=== PATIENT | male | born 1965 | race Two or more races ===

== ENCOUNTER 2017-07-17 11:15 | Inpatient (IN) | payer OTHER ==
[2017-07-17 13:05] VITALS: BMI 32.1
--- NOTE | 2017-07-17 13:47 | HP ---
CIWA Score - CIWA Score Nausea/Vomitin Muscle Tremors: 3 Anxiety: 3 Agitation: 3 Paroxysmal Sweats: 2 Orientation: 0-Oriented Tacttile Disturbances: 2-Mild Itch/Numbness/Burn Auditory Disturbances: 2-Mild Harshness/Frighten Visual Disturbances: 0-None Headache: 2-Mild CIWA-Ar Total Score: 20 Admission ROS BHS - HPI Chief Complaint: I NEED HELP TO STOP USING DRUG XANAX,HEROIN,MMTP Allergies/Adverse Reactions: Allergies Allergy/AdvReac Type Severity Reaction Status Date / Time Penicillins Allergy Severe Rash Verified 07/17/17 13:50 History of Present Illness: THIS 52 YEARS OLD MALE WITH XANAX AND HEROIN DEPENDENCE,MMTP,SEEKING DETOX,LAST DETOX [facility] 06/20 LOW BACK PAIN HERNIATED DISC HISTORY OF DVT BOTH LEGS NICOTINE DEPENDENCE LAP CHOLECYSTECMY IN 2014 LONGEST PERIOD OD SOBRIETY 8 YEARS - Ebola screening Have you traveled outside of the country in the last 21 days: No Have you had contact with anyone from an Ebola affected area: No Have you been sick,other than usual withdrawal symptoms: No Do you have a fever: No - Review of Systems Constitutional: Chills, Loss of Appetite, Malaise, Night Sweats, Changes in sleep, Weakness EENT: reports: Tearing, Nose Congestion Respiratory: reports: No Symptoms reported Cardiac: reports: No Symptoms Reported GI: reports: Diarrhea, Nausea, Vomiting, Abdominal cramping : reports: No Symptoms Reported Musculoskeletal: reports: Back Pain, Muscle Pain Integumentary: reports: Dryness Neuro: reports: Tremors Endocrine: reports: No Symptoms Reported Hematology: reports: No Symptoms Reported Psychiatric: reports: No Sypmtoms Reported, Judgement Intact, Mood/Affect Appropiate, Orientated x3, Depressed Patient History - Patient Medical History Hx Anemia: No Hx Asthma: No Hx Chronic Obstructive Pulmonary Disease (COPD): Yes (ON ALBUTEROL INHALER) Hx Cancer: No Hx Cardiac Disorders: No Hx Congestive Heart Failure: No Hx Hypertension: No Hx Hypercholesterolemia: No Hx Pacemaker: No HX Cerebrovascular Accident: No Hx Seizures: No Hx Dementia: No Hx Diabetes: No Hx Gastrointestinal Disorders: No Hx Liver Disease: No Hx Genitourinary Disorders: No Hx Sexually Transmitted Disorders: No Hx Human Immunodeficiency Virus (HIV): No (LAST 2016 NEGATIVE) Hx Hepatitis C: No Hx Depression: Yes (INSOMNIA) Hx Suicide Attempt: No Hx Bipolar Disorder: No Hx Schizophrenia: No Other Medical History: NO SUICIDAL,NO HOMICIDAL,LOW BACK PAIN HERNIATED DISC, MMTP 100MGS/DAY - Patient Surgical History Past Surgical History: Yes Hx Cholecystectomy: Yes (LAP IN 2014) - PPD History Previous Implant?: Yes Documented Results: Negative w/o proof Implanted On Prior [facility] Admission?: No PPD to be Administered?: No - Smoking Cessation Smoking history: Current every day smoker Have you smoked in the past 12 months: Yes Aproximately how many cigarettes per day: 15 Cigars Per Day: 0 Hx Chewing Tobacco Use: No Initiated information on smoking cessation: Yes 'Breaking Loose' booklet given: 07/17/17 - Substance & Tx. History Hx Alcohol Use: No Hx Substance Use: Yes Substance Use Type: Heroin, Tranquilizers Hx Substance Use Treatment: Yes ([facility] 06/20) - Substances Abused Alprazolam (Xanax) Route: Oral Frequency: Daily Amount used: 10-12mg Age of first use: 49 Date of Last Use: 07/16/17 Heroin Route: Inhalation Frequency: Daily Amount used: 6-7 bags Age of first use: 22 Date of Last Use: 07/16/17 Family Disease History - Family Disease History Family Disease History: Other: Father (ALCOHOL,), Mother (ALCOHOL, ) Admission Physical Exam [facility] - Vital Signs Vital Signs: Vital Signs - 24 hr 07/17/17 13:02 Temperature 96.0 F L Pulse Rate 63 Respiratory 20 Rate Blood Pressure 96/57 - Physical General Appearance: Yes: Moderate Distress, Tremorous, Irritable, Sweating, Anxious HEENTM: Yes: Normal ENT Inspection, ELAINE, Pharynx Normal Respiratory: Yes: Lungs Clear Neck: Yes: Within Normal Limits Breast: Yes: Within Normal Limits Cardiology: Yes: Within Normal Limits, Regular Rhythm, Regular Rate, S1, S2 Abdominal: Yes: Normal Bowel Sounds, Non Tender, Flat, Soft Genitourinary: Yes: Within Normal Limits Back: Yes: Muscle Spasm Musculoskeletal: Yes: full range of Motion, Back pain Extremities: Yes: Tremors 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 intact, Fully Oriented, Alert, Motor Strength 5/5 Integumentary: Yes: Dry Lymphatic: Yes: Within Normal Limits - Diagnostic (1) Uncomplicated sedative, hypnotic or anxiolytic withdrawal Current Visit: Yes Status: Acute (2) Methadone maintenance therapy patient Current Visit: Yes Status: Acute (3) Depression Current Visit: Yes Status: Acute (4) Heroin dependence Current Visit: Yes Status: Acute (5) S/P laparoscopic cholecystectomy Current Visit: Yes Status: Acute (6) Hx laparoscopic cholecystectomy Current Visit: Yes Status: Acute (7) Nicotine dependence Current Visit: Yes Status: Acute Cleared for Admission S - Detox or Rehab [facility] Level of Care: Medically Managed Detox Regimen/Protocol: Valium [facility] Breath Alcohol Content Breath Alcohol Content: 0 Urine Drug Screen - Results Drug Screen Negative: No Urine Drug Screen Results: OPI-Opiates, BZO-Benzodiazepines, MTD-Methadone
[2017-07-17] MEDS ORDERED: MAGNESIUM HYDROX 2400MG/30ML ORAL SUSPENSION 30 ML CUP PO PRN (14:23)
[2017-07-17] MEDS ORDERED: IBUPROFEN 400 MG TABLET (FP) PO PRN (14:23)
[2017-07-17] MEDS ORDERED: LOPERAMIDE HCL 2 MG CAPSULE PO PRN (14:23)
[2017-07-17] MEDS ORDERED: guaiFENesin/D-METHORPHAN HB 10 ML UNIT-DOSE CUPS PO PRN (14:23)
[2017-07-17] MEDS ORDERED: MAG HYDROX/AL HYDROX/SIMETH 30 ML UNIT-DOSE CUP PO PRN (14:23)
[2017-07-17] MEDS ORDERED: hydrOXYzine PAMOATE 50 MG CAPSULE (FP) PO PRN (14:23)
[2017-07-17] MEDS ORDERED: diazePAM 5 MG TABLET PO PRN (14:23)
[2017-07-17] MEDS ORDERED: MAGNESIUM CITRATE 300 ML BOTTLE PO PRN (14:23)
[2017-07-17] MEDS ORDERED: P-EPHED 60MG/TRIPROLIDI 2.5MG TABLET PO PRN (14:23)
[2017-07-17] MEDS ORDERED: MENTHOL/PHENOL 1 EACH UD MM PRN (14:23)
[2017-07-17] MEDS ORDERED: ALBUTEROL SO4 18 GM HFA INHALER IH PRN (14:31)
[2017-07-17] MEDS ORDERED: diazePAM 5 MG TABLET PO ONE (14:45)
[2017-07-17] MEDS: BACLOFEN 10 MG TABLET (FP) PO SCH (22:41)
[2017-07-17] MEDS: diazePAM 5 MG TABLET PO SCH (22:41)
[2017-07-17] MEDS: THIAMINE HCL 100 MG TABLET (FP) PO SCH (22:41)
[2017-07-17 23:10] LABS: URINE APPEARANCE SLCLOUDY; URINE BILIRUBIN NEGATIVE (NEGATIVE); URINE BLOOD NEGATIVE (NEGATIVE); URINE COLOR AMBER; URINE GLUCOSE (UA) NEGATIVE (NEGATIVE); URINE KETONE NEGATIVE (NEGATIVE); URINE LEUK ESTERASE TRACE (NEGATIVE); URINE NITRITE NEGATIVE (NEGATIVE); URINE UROBILINOGEN 4.0 E.U/dl mg/dL (0.2-1.0)
[2017-07-17 23:15] LABS: URINE PROTEIN 1+ (NEGATIVE)
[2017-07-17 23:23] LABS: EPI CELLS RARE /HPF (FEW); URINE HYALINE CAST 12 /lpf; URINE MUCUS MODERATE
[2017-07-18] MEDS ORDERED: METHADONE HCL 40 MG DISPERSABLE TABLET ONE (04:29)
[2017-07-18] MEDS ORDERED: METHADONE HCL 10 MG TABLET ONE (04:30)
[2017-07-18] MEDS: METHADONE 80 MG, METHADONE 20 MG PO SCH (05:57)
[2017-07-18] MEDS: diazePAM 5 MG TABLET PO SCH ×3 (05:57→22:47)
[2017-07-18] MEDS ORDERED: METHADONE HCL 40 MG DISPERSABLE TABLET PO SCH (06:00)
--- NOTE | 2017-07-18 08:46 | CONSULT ---
[facility] Psychiatric Consult - Data Date of interview: 07/18/17 Admission source: [facility] Identifying data: This is 52 years old male , father of two, homeless , with no psychiatric hospitalization history , looking fro detos to Heroin , Alcohol, Cocaine and Nicotine dependency. Substance Abuse History: - Smoking Cessation. Smoking history: Current every day smoker. Have you smoked in the past 12 months: Yes. Aproximately how many cigarettes per day: 15. Cigars Per Day: 0. Hx Chewing Tobacco Use: No. Initiated information on smoking cessation: Yes. 'Breaking Loose' booklet given : 07/17/17. - Substance & Tx. History. Hx Alcohol Use: No. Hx Substance Use: Yes. Substance Use Type: Heroin, Tranquilizers. Hx Substance Use Treatment: Yes ([facility] 06/20). - Substances Abused. Alprazolam (Xanax). Route: Oral. Frequency: Daily. Amount used: 10-12mg. Age of first use: 49. Date of Last Use: 07/16/17. Heroin. Route: Inhalation. Frequency: Daily. Amount used: 6-7 bags. Age of first use: 22. Date of Last Use: 07/16/17 Medical History: LBP, DVT history, s/p Cholecystectomy on 2014, Psychiatric History: Denies past psychiatric history, reports no medications taking priorm to admission Physical/Sexual Abuse/Trauma History: Denies Additional Comment: Observation. Detox Unit Care Protocol Mental Status Exam - Mental Status Exam Alert and Oriented to: Person Cognitive Function: Fair Patient Appearance: Unkempt Mood: Sad Affect: Flat Patient Behavior: Sedated Speech Pattern: Delayed Voice Loudness: Mildly Soft/Quiet Thought Process: Circumstantial Thought Disorder: Being Controlled Hallucinations: Denies Suicidal Ideation: Denies Homicidal Ideation: Denies Insight/Judgement: Fair Sleep: Difficulty falling asleep Appetite: Weight loss Muscle strength/Tone: Mild Hypotonicity Gait/Station: Shuffling Additional Comments: Observation. Detox Unit Care Protocol Psychiatric Findings - Problem List ([place] 1, 2,3) (1) Drug-induced mood disorder Current Visit: Yes Status: Suspected (2) Depression Current Visit: Yes Status: Acute (3) Methadone maintenance therapy patient Current Visit: Yes Status: Acute (4) Nicotine dependence Current Visit: Yes Status: Acute (5) Uncomplicated sedative, hypnotic or anxiolytic withdrawal Current Visit: Yes Status: Acute - Initial Treatment Plan Initial Treatment Plan: Observation. Detox Unit Care Protocol
[2017-07-18 10:18] LABS: HEMATOCRIT 44.8 % (35.4-49); HEMOGLOBIN 14.7 GM/dL (11.7-16.9); MCH 27.9 pg (25.7-33.7); MCHC 32.9 g/dl (32.0-35.9); MEAN CELL VOLUME 84.9 fl (80-96); PLATELET COUNT 204 K/MM3 (134-434); RBC 5.28 M/mm3 (4.00-5.60); RDW 14.3 % (11.9-15.9); WHITE BLOOD COUNT 6.4 K/mm3 (4.0-10.0)
[2017-07-18 10:25] LABS: CHLORIDE 104 mmol/L (98-107); SODIUM 139 mmol/L (136-145)
[2017-07-18 10:42] LABS: ALBUMIN 4.2 g/dl (3.4-5.0); ALK PHOS 136 U/L (45-117); ANION GAP 7 (8-16); BLOOD UREA NITROGEN 11 mg/dL (7-18); CALCIUM 8.7 mg/dL (8.5-10.1); CO2 28 mmol/L (21-32); CREATININE 1.2 mg/dL (0.7-1.3); GLUCOSE,RANDOM 79 mg/dL (74-106); SGOT/AST 21 U/L (15-37); SGPT/ALT 24 U/L (12-78); TOT PROT 7.8 g/dl (6.4-8.2)
[2017-07-18] MEDS: PRENATAL VITAMINS W/ FOLIC ACID TABLET (FP) PO SCH (10:48)
--- NOTE | 2017-07-18 11:58 | PN ---
S CIWA - CIWA Score Nausea/Vomitin-Mild Nausea/No Vomiting Muscle Tremors: 4-Moderate,w/Arms Extend Anxiety: 4-Mod. Anxious/Guarded Agitation: 4-Moderately Restless Paroxysmal Sweats: 1-Minimal Palms Moist Orientation: 0-Oriented Tacttile Disturbances: 1-Very Mild Itch/Numbness Auditory Disturbances: 0-None Visual Disturbances: 0-None Headache: 1-Very Mild CIWA-Ar Total Score: 16 BHS Progress Note (SOAP) Subjective: sweat tremor anxiety irritable headache GI upset Objective: 07/18/17 11:57 Vital Signs Temperature 97.7 F 07/18/17 10:00 Pulse Rate 68 07/18/17 10:00 Respiratory Rate 20 07/18/17 10:00 Blood Pressure 115/60 07/18/17 10:00 O2 Sat by Pulse Oximetry (%) Laboratory Last Values WBC 6.4 K/mm3 (4.0-10.0) 07/18/17 05:45 RBC 5.28 M/mm3 (4.00-5.60) 07/18/17 05:45 Hgb 14.7 GM/dL (11.7-16.9) 07/18/17 05:45 Hct 44.8 % (35.4-49) 07/18/17 05:45 MCV 84.9 fl (80-96) 07/18/17 05:45 MCH 27.9 pg (25.7-33.7) 07/18/17 05:45 MCHC 32.9 g/dl (32.0-35.9) 07/18/17 05:45 RDW 14.3 % (11.9-15.9) 07/18/17 05:45 Plt Count 204 K/MM3 (134-434) 07/18/17 05:45 MPV 11.0 fl (7.5-11.1) 07/18/17 05:45 Sodium 139 mmol/L (136-145) 07/18/17 05:45 Potassium 4.0 mmol/L (3.5-5.1) 07/18/17 05:45 Chloride 104 mmol/L (98-107) 07/18/17 05:45 Carbon Dioxide 28 mmol/L (21-32) 07/18/17 05:45 Anion Gap 7 (8-16) L 07/18/17 05:45 BUN 11 mg/dL (7-18) 07/18/17 05:45 Creatinine 1.2 mg/dL (0.7-1.3) 07/18/17 05:45 Creat Clearance w eGFR > 60 (>60) 07/18/17 05:45 Random Glucose 79 mg/dL (74-106) 07/18/17 05:45 Calcium 8.7 mg/dL (8.5-10.1) 07/18/17 05:45 Total Bilirubin 1.0 mg/dL (0.2-1.0) 07/18/17 05:45 AST 21 U/L (15-37) 07/18/17 05:45 ALT 24 U/L (12-78) 07/18/17 05:45 Alkaline Phosphatase 136 U/L (45-117) H 07/18/17 05:45 Total Protein 7.8 g/dl (6.4-8.2) 07/18/17 05:45 Albumin 4.2 g/dl (3.4-5.0) 07/18/17 05:45 Urine Color Hiwot 07/17/17 22:10 Urine Appearance Slcloudy 07/17/17 22:10 Urine pH 5.0 (5.0-8.0) 07/17/17 22:10 Ur Specific [place] 1.026 (1.001-1.035) 07/17/17 22:10 Urine Protein 1+ (NEGATIVE) H 07/17/17 22:10 Urine Glucose (UA) Negative (NEGATIVE) 07/17/17 22:10 Urine Ketones Negative (NEGATIVE) 07/17/17 22:10 Urine Blood Negative (NEGATIVE) 07/17/17 22:10 Urine Nitrite Negative (NEGATIVE) 07/17/17 22:10 Urine Bilirubin Negative (NEGATIVE) 07/17/17 22:10 Urine Urobilinogen 4.0 e.u/dl mg/dL (0.2-1.0) 07/17/17 22:10 Ur Leukocyte Esterase Trace (NEGATIVE) 07/17/17 22:10 Urine WBC (Auto) 2 /hpf (3-5) 07/17/17 22:10 Urine RBC (Auto) 2 /hpf (0-3) 07/17/17 22:10 Ur Epithelial Cells Rare /HPF (FEW) 07/17/17 22:10 Hyaline Casts 12 /lpf 07/17/17 22:10 Urine Mucus Moderate 07/17/17 22:10 lab noted Assessment: 07/18/17 11:57 withdrawal sx Plan: withdrawal sx
[2017-07-18] MEDS: BACLOFEN 10 MG TABLET (FP) PO SCH (22:47)
[2017-07-18] MEDS: THIAMINE HCL 100 MG TABLET (FP) PO SCH (22:47)
[2017-07-19] MEDS ORDERED: METHADONE HCL 40 MG DISPERSABLE TABLET ONE (03:18)
[2017-07-19] MEDS ORDERED: METHADONE HCL 10 MG TABLET ONE (03:18)
[2017-07-19] MEDS: METHADONE 80 MG, METHADONE 20 MG PO SCH (05:44)
[2017-07-19] MEDS: PRENATAL VITAMINS W/ FOLIC ACID TABLET (FP) PO SCH (10:30)
[2017-07-19] MEDS: diazePAM 5 MG TABLET PO SCH ×2 (10:30→22:26)
--- NOTE | 2017-07-19 10:45 | PN ---
[facility] CIWA - CIWA Score Nausea/Vomitin-No Nausea/No Vomiting Muscle Tremors: 4-Moderate,w/Arms Extend Anxiety: 3 Agitation: 4-Moderately Restless Paroxysmal Sweats: 4-Forehead w/Sweat Beads Orientation: 0-Oriented Tacttile Disturbances: 0-None Auditory Disturbances: 0-None Visual Disturbances: 0-None Headache: 0-None Present CIWA-Ar Total Score: 15 BHS Progress Note (SOAP) Subjective: anxiety sweats shakes interrupted sleep Objective: 07/19/17 10:45 Vital Signs Temperature 97.9 F 07/19/17 06:00 Pulse Rate 54 L 07/19/17 06:00 Respiratory Rate 18 07/19/17 06:00 Blood Pressure 124/59 07/19/17 06:00 O2 Sat by Pulse Oximetry (%) Laboratory Tests 07/17/17 07/17/17 07/18/17 14:30 22:10 05:45 WBC 6.4 RBC 5.28 Hgb 14.7 Hct 44.8 MCV 84.9 MCH 27.9 MCHC 32.9 RDW 14.3 Plt Count 204 MPV 11.0 Sodium Potassium Chloride Carbon Dioxide Anion Gap BUN Creatinine Creat Clearance w eGFR Random Glucose Calcium Total Bilirubin AST ALT Alkaline Phosphatase Total Protein Albumin Urine Color Hiwot Urine Appearance Slcloudy Urine pH 5.0 Ur Specific [place] 1.026 Urine Protein 1+ H Urine Glucose (UA) Negative Urine Ketones Negative Urine Blood Negative Urine Nitrite Negative Urine Bilirubin Negative Urine Urobilinogen 4.0 e.u/dl Ur Leukocyte Esterase Trace Urine WBC (Auto) 2 Urine RBC (Auto) 2 Ur Epithelial Cells Rare Hyaline Casts 12 Urine Mucus Moderate RPR Titer HIV 1&2 Antibody Screen Negative HIV P24 Antigen Negative 07/18/17 07/18/17 05:45 05:45 WBC RBC Hgb Hct MCV MCH MCHC RDW Plt Count MPV Sodium 139 Potassium 4.0 Chloride 104 Carbon Dioxide 28 Anion Gap 7 L BUN 11 Creatinine 1.2 Creat Clearance w eGFR > 60 Random Glucose 79 Calcium 8.7 Total Bilirubin 1.0 AST 21 ALT 24 Alkaline Phosphatase 136 H Total Protein 7.8 Albumin 4.2 Urine Color Urine Appearance Urine pH Ur Specific [place] Urine Protein Urine Glucose (UA) Urine Ketones Urine Blood Urine Nitrite Urine Bilirubin Urine Urobilinogen Ur Leukocyte Esterase Urine WBC (Auto) Urine RBC (Auto) Ur Epithelial Cells Hyaline Casts Urine Mucus RPR Titer Nonreactive HIV 1&2 Antibody Screen HIV P24 Antigen aaox3 ambulating no acute distress Assessment: 07/19/17 10:45 withdrawal sx Plan: continue detox increase fluids
[2017-07-19] MEDS: THIAMINE HCL 100 MG TABLET (FP) PO SCH (22:26)
[2017-07-19] MEDS: BACLOFEN 10 MG TABLET (FP) PO SCH (22:26)
[2017-07-20] MEDS ORDERED: METHADONE HCL 40 MG DISPERSABLE TABLET ONE (04:29)
[2017-07-20] MEDS ORDERED: METHADONE HCL 10 MG TABLET ONE (04:29)
[2017-07-20] MEDS: METHADONE 80 MG, METHADONE 20 MG PO SCH (06:01)
[2017-07-20] MEDS: PRENATAL VITAMINS W/ FOLIC ACID TABLET (FP) PO SCH (10:18)
[2017-07-20] MEDS: diazePAM 5 MG TABLET PO SCH ×2 (10:18→22:14)
--- NOTE | 2017-07-20 13:33 | PN ---
BHS Progress Note (SOAP) Subjective: ALERT,IRRITABLE,ANXIOUS,INTERRUTED SLEEP Objective: 07/20/17 13:29 Vital Signs Temperature 974.9 F H 07/20/17 09:56 Pulse Rate 65 07/20/17 09:56 Respiratory Rate 18 07/20/17 09:56 Blood Pressure 110/75 07/20/17 09:56 O2 Sat by Pulse Oximetry (%) Assessment: 07/20/17 13:32 WITHDRAWAL SYMPTOM Plan: CONTINUE DETOX
[2017-07-20] MEDS: THIAMINE HCL 100 MG TABLET (FP) PO SCH (22:14)
[2017-07-20] MEDS: BACLOFEN 10 MG TABLET (FP) PO SCH (22:14)
[2017-07-21] MEDS ORDERED: METHADONE HCL 40 MG DISPERSABLE TABLET ONE (04:46)
[2017-07-21] MEDS ORDERED: METHADONE HCL 10 MG TABLET ONE (04:47)
[2017-07-21] MEDS: METHADONE 80 MG, METHADONE 20 MG PO SCH (05:12)
[2017-07-21] MEDS ORDERED: diazePAM 5 MG TABLET PO SCH (10:00)
[2017-07-21] MEDS: PRENATAL VITAMINS W/ FOLIC ACID TABLET (FP) PO SCH (10:16)
--- NOTE | 2017-07-21 10:44 | PN ---
S Progress Note (SOAP) Subjective: alert oriented x 3 mild sweat calm tolerates food and fluid well Objective: 07/21/17 10:44 Vital Signs Temperature 97.4 F L 07/21/17 06:12 Pulse Rate 50 L 07/21/17 06:12 Respiratory Rate 19 07/21/17 06:12 Blood Pressure 113/55 07/21/17 06:12 O2 Sat by Pulse Oximetry (%) Laboratory Last Values WBC 6.4 K/mm3 (4.0-10.0) 07/18/17 05:45 RBC 5.28 M/mm3 (4.00-5.60) 07/18/17 05:45 Hgb 14.7 GM/dL (11.7-16.9) 07/18/17 05:45 Hct 44.8 % (35.4-49) 07/18/17 05:45 MCV 84.9 fl (80-96) 07/18/17 05:45 MCH 27.9 pg (25.7-33.7) 07/18/17 05:45 MCHC 32.9 g/dl (32.0-35.9) 07/18/17 05:45 RDW 14.3 % (11.9-15.9) 07/18/17 05:45 Plt Count 204 K/MM3 (134-434) 07/18/17 05:45 MPV 11.0 fl (7.5-11.1) 07/18/17 05:45 Sodium 139 mmol/L (136-145) 07/18/17 05:45 Potassium 4.0 mmol/L (3.5-5.1) 07/18/17 05:45 Chloride 104 mmol/L (98-107) 07/18/17 05:45 Carbon Dioxide 28 mmol/L (21-32) 07/18/17 05:45 Anion Gap 7 (8-16) L 07/18/17 05:45 BUN 11 mg/dL (7-18) 07/18/17 05:45 Creatinine 1.2 mg/dL (0.7-1.3) 07/18/17 05:45 Creat Clearance w eGFR > 60 (>60) 07/18/17 05:45 Random Glucose 79 mg/dL (74-106) 07/18/17 05:45 Calcium 8.7 mg/dL (8.5-10.1) 07/18/17 05:45 Total Bilirubin 1.0 mg/dL (0.2-1.0) 07/18/17 05:45 AST 21 U/L (15-37) 07/18/17 05:45 ALT 24 U/L (12-78) 07/18/17 05:45 Alkaline Phosphatase 136 U/L (45-117) H 07/18/17 05:45 Total Protein 7.8 g/dl (6.4-8.2) 07/18/17 05:45 Albumin 4.2 g/dl (3.4-5.0) 07/18/17 05:45 Urine Color Hiwot 07/17/17 22:10 Urine Appearance Slcloudy 07/17/17 22:10 Urine pH 5.0 (5.0-8.0) 07/17/17 22:10 Ur Specific [place] 1.026 (1.001-1.035) 07/17/17 22:10 Urine Protein 1+ (NEGATIVE) H 07/17/17 22:10 Urine Glucose (UA) Negative (NEGATIVE) 07/17/17 22:10 Urine Ketones Negative (NEGATIVE) 07/17/17 22:10 Urine Blood Negative (NEGATIVE) 07/17/17 22:10 Urine Nitrite Negative (NEGATIVE) 07/17/17 22:10 Urine Bilirubin Negative (NEGATIVE) 07/17/17 22:10 Urine Urobilinogen 4.0 e.u/dl mg/dL (0.2-1.0) 07/17/17 22:10 Ur Leukocyte Esterase Trace (NEGATIVE) 07/17/17 22:10 Urine WBC (Auto) 2 /hpf (3-5) 07/17/17 22:10 Urine RBC (Auto) 2 /hpf (0-3) 07/17/17 22:10 Ur Epithelial Cells Rare /HPF (FEW) 07/17/17 22:10 Hyaline Casts 12 /lpf 07/17/17 22:10 Urine Mucus Moderate 07/17/17 22:10 RPR Titer Nonreactive (NONREACTIVE) 07/18/17 05:45 HIV 1&2 Antibody Screen Negative 07/17/17 14:30 HIV P24 Antigen Negative 07/17/17 14:30 lab noted Assessment: 07/21/17 10:44 mild withdrawal sx Plan: medically supervised detox
[2017-07-21] MEDS: THIAMINE HCL 100 MG TABLET (FP) PO SCH (22:38)
[2017-07-21] MEDS: BACLOFEN 10 MG TABLET (FP) PO SCH (22:39)
[2017-07-22] MEDS ORDERED: METHADONE HCL 40 MG DISPERSABLE TABLET ONE (05:02)
[2017-07-22] MEDS ORDERED: METHADONE HCL 10 MG TABLET ONE (05:02)
[2017-07-22] MEDS: METHADONE 80 MG, METHADONE 20 MG PO SCH (05:50)
[2017-07-22] MEDS: PRENATAL VITAMINS W/ FOLIC ACID TABLET (FP) PO SCH (10:32)
--- NOTE | 2017-07-22 11:23 | DS ---
[facility] Detox Discharge Summary Admission Date: 07/17/17 Discharge Date: 07/22/17 - History Pertinent Past History: chronic Low back pain herniated disc hx of dvt in both legs depression - Physical Exam Results Vital Signs: Vital Signs Temperature 97.8 F 07/22/17 06:00 Pulse Rate 64 07/22/17 06:00 Respiratory Rate 18 07/22/17 06:00 Blood Pressure 121/76 07/22/17 06:00 O2 Sat by Pulse Oximetry (%) Pertinent Admission Physical Exam Findings: withdrawal sx Vital Signs Temperature 97.8 F 07/22/17 06:00 Pulse Rate 64 07/22/17 06:00 Respiratory Rate 18 07/22/17 06:00 Blood Pressure 121/76 07/22/17 06:00 O2 Sat by Pulse Oximetry (%) Laboratory Last Values WBC 6.4 K/mm3 (4.0-10.0) 07/18/17 05:45 RBC 5.28 M/mm3 (4.00-5.60) 07/18/17 05:45 Hgb 14.7 GM/dL (11.7-16.9) 07/18/17 05:45 Hct 44.8 % (35.4-49) 07/18/17 05:45 MCV 84.9 fl (80-96) 07/18/17 05:45 MCH 27.9 pg (25.7-33.7) 07/18/17 05:45 MCHC 32.9 g/dl (32.0-35.9) 07/18/17 05:45 RDW 14.3 % (11.9-15.9) 07/18/17 05:45 Plt Count 204 K/MM3 (134-434) 07/18/17 05:45 MPV 11.0 fl (7.5-11.1) 07/18/17 05:45 Sodium 139 mmol/L (136-145) 07/18/17 05:45 Potassium 4.0 mmol/L (3.5-5.1) 07/18/17 05:45 Chloride 104 mmol/L (98-107) 07/18/17 05:45 Carbon Dioxide 28 mmol/L (21-32) 07/18/17 05:45 Anion Gap 7 (8-16) L 07/18/17 05:45 BUN 11 mg/dL (7-18) 07/18/17 05:45 Creatinine 1.2 mg/dL (0.7-1.3) 07/18/17 05:45 Creat Clearance w eGFR > 60 (>60) 07/18/17 05:45 Random Glucose 79 mg/dL (74-106) 07/18/17 05:45 Calcium 8.7 mg/dL (8.5-10.1) 07/18/17 05:45 Total Bilirubin 1.0 mg/dL (0.2-1.0) 07/18/17 05:45 AST 21 U/L (15-37) 07/18/17 05:45 ALT 24 U/L (12-78) 07/18/17 05:45 Alkaline Phosphatase 136 U/L (45-117) H 07/18/17 05:45 Total Protein 7.8 g/dl (6.4-8.2) 07/18/17 05:45 Albumin 4.2 g/dl (3.4-5.0) 07/18/17 05:45 Urine Color Hiwot 07/17/17 22:10 Urine Appearance Slcloudy 07/17/17 22:10 Urine pH 5.0 (5.0-8.0) 07/17/17 22:10 Ur Specific [place] 1.026 (1.001-1.035) 07/17/17 22:10 Urine Protein 1+ (NEGATIVE) H 07/17/17 22:10 Urine Glucose (UA) Negative (NEGATIVE) 07/17/17 22:10 Urine Ketones Negative (NEGATIVE) 07/17/17 22:10 Urine Blood Negative (NEGATIVE) 07/17/17 22:10 Urine Nitrite Negative (NEGATIVE) 07/17/17 22:10 Urine Bilirubin Negative (NEGATIVE) 07/17/17 22:10 Urine Urobilinogen 4.0 e.u/dl mg/dL (0.2-1.0) 07/17/17 22:10 Ur Leukocyte Esterase Trace (NEGATIVE) 07/17/17 22:10 Urine WBC (Auto) 2 /hpf (3-5) 07/17/17 22:10 Urine RBC (Auto) 2 /hpf (0-3) 07/17/17 22:10 Ur Epithelial Cells Rare /HPF (FEW) 07/17/17 22:10 Hyaline Casts 12 /lpf 07/17/17 22:10 Urine Mucus Moderate 07/17/17 22:10 RPR Titer Nonreactive (NONREACTIVE) 07/18/17 05:45 HIV 1&2 Antibody Screen Negative 07/17/17 14:30 HIV P24 Antigen Negative 07/17/17 14:30 - Treatment Hospital Course: Detox Protocol Followed, Detoxed Safely, Responded well, Discharged Condition Good, Rehab Referral Accepted Patient has Accepted a Rehab Referral to: [facility] Rehab - Medication Discharge Medications: Ambulatory Orders Albuterol Sulfate Inhaler - [Ventolin Hfa Inhaler -] 2 inh PO Q4H PRN 07/17/17 Baclofen 10 mg PO HS 07/17/17 - Diagnosis (1) Uncomplicated sedative, hypnotic or anxiolytic withdrawal Current Visit: Yes Status: Acute (2) Methadone maintenance therapy patient Current Visit: Yes Status: Acute (3) Nicotine dependence Current Visit: Yes Status: Acute (4) Depression Current Visit: Yes Status: Acute - AMA Did Patient Leave Against Medical Advice: No
[2017-07-22] MEDS: THIAMINE HCL 100 MG TABLET (FP) PO SCH (21:21)
[2017-07-22] MEDS: BACLOFEN 10 MG TABLET (FP) PO SCH (21:21)
[2017-07-23] MEDS ORDERED: METHADONE HCL 10 MG TABLET ONE (04:26)
[2017-07-23] MEDS ORDERED: METHADONE HCL 40 MG DISPERSABLE TABLET ONE (04:27)
[2017-07-23] MEDS: METHADONE 80 MG, METHADONE 20 MG PO SCH (06:19)
[2017-07-23] MEDS: PRENATAL VITAMINS W/ FOLIC ACID TABLET (FP) PO SCH (10:00)
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
[2017-07-23] MEDS: BACLOFEN 10 MG TABLET (FP) PO SCH (21:38)
[2017-07-23] MEDS: THIAMINE HCL 100 MG TABLET (FP) PO SCH (21:38)
[2017-07-24] MEDS ORDERED: METHADONE HCL 10 MG TABLET ONE (04:03)
[2017-07-24] MEDS ORDERED: METHADONE HCL 40 MG DISPERSABLE TABLET ONE (04:03)
[2017-07-24] MEDS: METHADONE 80 MG, METHADONE 20 MG PO SCH (06:20)
[2017-07-24] MEDS: PRENATAL VITAMINS W/ FOLIC ACID TABLET (FP) PO SCH (09:57)
[2017-07-24] MEDS: BACLOFEN 10 MG TABLET (FP) PO SCH (21:12)
[2017-07-24] MEDS: THIAMINE HCL 100 MG TABLET (FP) PO SCH (21:12)
[2017-07-25] MEDS ORDERED: METHADONE HCL 10 MG TABLET ONE (03:51)
[2017-07-25] MEDS ORDERED: METHADONE HCL 40 MG DISPERSABLE TABLET ONE (03:51)
[2017-07-25] MEDS: METHADONE 80 MG, METHADONE 20 MG PO SCH (06:17)
[2017-07-25] MEDS: PRENATAL VITAMINS W/ FOLIC ACID TABLET (FP) PO SCH (09:42)
[2017-07-25] MEDS: ACETAMINOPHEN 325 MG TABLET (FP) PO PRN (15:53)
[2017-07-25] MEDS: BACLOFEN 10 MG TABLET (FP) PO SCH (21:40)
[2017-07-25] MEDS: THIAMINE HCL 100 MG TABLET (FP) PO SCH (21:40)
[2017-07-26] MEDS ORDERED: METHADONE HCL 10 MG TABLET ONE (04:20)
[2017-07-26] MEDS ORDERED: METHADONE HCL 40 MG DISPERSABLE TABLET ONE (04:21)
[2017-07-26] MEDS: METHADONE 80 MG, METHADONE 20 MG PO SCH (06:19)
[2017-07-26] MEDS: PRENATAL VITAMINS W/ FOLIC ACID TABLET (FP) PO SCH (09:42)
[2017-07-26] MEDS: THIAMINE HCL 100 MG TABLET (FP) PO SCH (21:46)
[2017-07-26] MEDS: BACLOFEN 10 MG TABLET (FP) PO SCH (21:46)
[2017-07-27] MEDS ORDERED: METHADONE HCL 40 MG DISPERSABLE TABLET ONE (03:26)
[2017-07-27] MEDS ORDERED: METHADONE HCL 10 MG TABLET ONE (03:26)
[2017-07-27] MEDS: METHADONE 80 MG, METHADONE 20 MG PO SCH (06:06)
[2017-07-27] MEDS: PRENATAL VITAMINS W/ FOLIC ACID TABLET (FP) PO SCH (09:52)
[2017-07-27] MEDS: BACLOFEN 10 MG TABLET (FP) PO SCH (21:17)
[2017-07-27] MEDS: THIAMINE HCL 100 MG TABLET (FP) PO SCH (21:17)
[2017-07-28] MEDS ORDERED: METHADONE HCL 10 MG TABLET ONE (05:10)
[2017-07-28] MEDS ORDERED: METHADONE HCL 40 MG DISPERSABLE TABLET ONE (05:10)
[2017-07-28] MEDS: METHADONE 80 MG, METHADONE 20 MG PO SCH (06:24)
[2017-07-28] MEDS: PRENATAL VITAMINS W/ FOLIC ACID TABLET (FP) PO SCH (10:12)
[2017-07-28] MEDS: THIAMINE HCL 100 MG TABLET (FP) PO SCH (21:10)
[2017-07-28] MEDS: BACLOFEN 10 MG TABLET (FP) PO SCH (21:10)
[2017-07-29] MEDS ORDERED: METHADONE HCL 10 MG TABLET ONE (03:05)
[2017-07-29] MEDS ORDERED: METHADONE HCL 40 MG DISPERSABLE TABLET ONE (03:05)
[2017-07-29] MEDS: METHADONE 80 MG, METHADONE 20 MG PO SCH (06:08)
[2017-07-29] MEDS: PRENATAL VITAMINS W/ FOLIC ACID TABLET (FP) PO SCH (10:31)
[2017-07-29] MEDS: BACLOFEN 10 MG TABLET (FP) PO SCH (21:09)
[2017-07-29] MEDS: THIAMINE HCL 100 MG TABLET (FP) PO SCH (21:09)
[2017-07-30] MEDS ORDERED: METHADONE HCL 10 MG TABLET ONE (03:34)
[2017-07-30] MEDS ORDERED: METHADONE HCL 40 MG DISPERSABLE TABLET ONE (03:35)
[2017-07-30] MEDS: METHADONE 80 MG, METHADONE 20 MG PO SCH (06:22)
[2017-07-30] MEDS: PRENATAL VITAMINS W/ FOLIC ACID TABLET (FP) PO SCH (10:34)
[2017-07-30] MEDS: BACLOFEN 10 MG TABLET (FP) PO SCH (21:08)
[2017-07-30] MEDS: THIAMINE HCL 100 MG TABLET (FP) PO SCH (21:08)
[2017-07-31] MEDS ORDERED: METHADONE HCL 10 MG TABLET ONE (04:50)
[2017-07-31] MEDS ORDERED: METHADONE HCL 40 MG DISPERSABLE TABLET ONE (04:51)
[2017-07-31] MEDS: METHADONE 80 MG, METHADONE 20 MG PO SCH (06:36)
[2017-07-31] MEDS: PRENATAL VITAMINS W/ FOLIC ACID TABLET (FP) PO SCH (10:29)
[2017-07-31] MEDS: BACLOFEN 10 MG TABLET (FP) PO SCH (21:34)
[2017-07-31] MEDS: THIAMINE HCL 100 MG TABLET (FP) PO SCH (21:35)
[2017-08-01] MEDS ORDERED: METHADONE HCL 10 MG TABLET ONE (03:24)
[2017-08-01] MEDS ORDERED: METHADONE HCL 40 MG DISPERSABLE TABLET ONE (03:24)
[2017-08-01] MEDS: METHADONE 80 MG, METHADONE 20 MG PO SCH (06:15)
[2017-08-01] MEDS: PRENATAL VITAMINS W/ FOLIC ACID TABLET (FP) PO SCH (10:01)
[2017-08-01] MEDS: BACLOFEN 10 MG TABLET (FP) PO SCH (21:34)
[2017-08-01] MEDS: THIAMINE HCL 100 MG TABLET (FP) PO SCH (21:34)
[2017-08-02] MEDS ORDERED: METHADONE HCL 40 MG DISPERSABLE TABLET ONE (03:31)
[2017-08-02] MEDS ORDERED: METHADONE HCL 10 MG TABLET ONE (03:31)
[2017-08-02] MEDS: METHADONE 80 MG, METHADONE 20 MG PO SCH (06:11)
[2017-08-02] MEDS: PRENATAL VITAMINS W/ FOLIC ACID TABLET (FP) PO SCH (10:09)
[2017-08-02] MEDS: BACLOFEN 10 MG TABLET (FP) PO SCH (21:10)
[2017-08-02] MEDS: THIAMINE HCL 100 MG TABLET (FP) PO SCH (21:10)
[2017-08-03] MEDS ORDERED: METHADONE HCL 10 MG TABLET ONE ×2 (03:39→11:31)
[2017-08-03] MEDS ORDERED: METHADONE HCL 40 MG DISPERSABLE TABLET ONE ×2 (03:39→11:32)
[2017-08-03] MEDS: METHADONE 80 MG, METHADONE 20 MG PO SCH ×2 (07:15→11:33)
[2017-08-03] MEDS: PRENATAL VITAMINS W/ FOLIC ACID TABLET (FP) PO SCH (10:05)
[2017-08-03] MEDS: DOCUSATE SODIUM 100 MG CAPSULE (FP) PO PRN ×2 (14:41→21:08)
[2017-08-03] MEDS: THIAMINE HCL 100 MG TABLET (FP) PO SCH (21:08)
[2017-08-03] MEDS: BACLOFEN 10 MG TABLET (FP) PO SCH (21:08)
[2017-08-04] MEDS ORDERED: METHADONE HCL 10 MG TABLET ONE (03:04)
[2017-08-04] MEDS ORDERED: METHADONE HCL 40 MG DISPERSABLE TABLET ONE (03:04)
[2017-08-04] MEDS: METHADONE 80 MG, METHADONE 20 MG PO SCH (06:27)
[2017-08-04] MEDS: DOCUSATE SODIUM 100 MG CAPSULE (FP) PO PRN ×2 (06:28→21:30)
[2017-08-04] MEDS: PRENATAL VITAMINS W/ FOLIC ACID TABLET (FP) PO SCH (10:16)
[2017-08-04] MEDS: BACLOFEN 10 MG TABLET (FP) PO SCH (21:30)
[2017-08-04] MEDS: THIAMINE HCL 100 MG TABLET (FP) PO SCH (21:30)
[2017-08-05] MEDS ORDERED: METHADONE HCL 10 MG TABLET ONE (03:10)
[2017-08-05] MEDS ORDERED: METHADONE HCL 40 MG DISPERSABLE TABLET ONE (03:10)
[2017-08-05] MEDS: METHADONE 80 MG, METHADONE 20 MG PO SCH (06:23)
[2017-08-05] MEDS: DOCUSATE SODIUM 100 MG CAPSULE (FP) PO PRN ×3 (06:25→21:07)
[2017-08-05] MEDS: PRENATAL VITAMINS W/ FOLIC ACID TABLET (FP) PO SCH (09:52)
[2017-08-05] MEDS: BACLOFEN 10 MG TABLET (FP) PO SCH (21:07)
[2017-08-05] MEDS: THIAMINE HCL 100 MG TABLET (FP) PO SCH (21:07)
[2017-08-06] MEDS ORDERED: METHADONE HCL 10 MG TABLET ONE (04:22)
[2017-08-06] MEDS ORDERED: METHADONE HCL 40 MG DISPERSABLE TABLET ONE (04:22)
[2017-08-06] MEDS: DOCUSATE SODIUM 100 MG CAPSULE (FP) PO PRN ×2 (06:29→21:44)
[2017-08-06] MEDS: METHADONE 80 MG, METHADONE 20 MG PO SCH (06:29)
[2017-08-06] MEDS: PRENATAL VITAMINS W/ FOLIC ACID TABLET (FP) PO SCH (09:50)
[2017-08-06] MEDS: BACLOFEN 10 MG TABLET (FP) PO SCH (21:44)
[2017-08-06] MEDS: THIAMINE HCL 100 MG TABLET (FP) PO SCH (21:44)
[2017-08-07] MEDS ORDERED: METHADONE HCL 40 MG DISPERSABLE TABLET ONE (04:05)
[2017-08-07] MEDS ORDERED: METHADONE HCL 10 MG TABLET ONE (04:05)
[2017-08-07] MEDS: METHADONE 80 MG, METHADONE 20 MG PO SCH (06:15)
[2017-08-07] MEDS: DOCUSATE SODIUM 100 MG CAPSULE (FP) PO PRN (06:17)
[2017-08-07] MEDS: PRENATAL VITAMINS W/ FOLIC ACID TABLET (FP) PO SCH (09:43)
[2017-08-07] MEDS: BACLOFEN 10 MG TABLET (FP) PO SCH (21:15)
[2017-08-07] MEDS: THIAMINE HCL 100 MG TABLET (FP) PO SCH (21:15)
[2017-08-07] MEDS: DOCUSATE SODIUM 100 MG CAPSULE (FP) PO SCH (21:16)
[2017-08-08] MEDS ORDERED: METHADONE HCL 40 MG DISPERSABLE TABLET ONE (04:06)
[2017-08-08] MEDS ORDERED: METHADONE HCL 10 MG TABLET ONE (04:06)
[2017-08-08] MEDS: METHADONE 80 MG, METHADONE 20 MG PO SCH (06:09)
[2017-08-08] MEDS: PRENATAL VITAMINS W/ FOLIC ACID TABLET (FP) PO SCH (10:13)
[2017-08-08] MEDS: BACLOFEN 10 MG TABLET (FP) PO SCH (21:15)
[2017-08-08] MEDS: THIAMINE HCL 100 MG TABLET (FP) PO SCH (21:15)
[2017-08-08] MEDS: DOCUSATE SODIUM 100 MG CAPSULE (FP) PO SCH (21:16)
[2017-08-09] MEDS ORDERED: METHADONE HCL 10 MG TABLET ONE (04:14)
[2017-08-09] MEDS ORDERED: METHADONE HCL 40 MG DISPERSABLE TABLET ONE (04:14)
[2017-08-09] MEDS: METHADONE 80 MG, METHADONE 20 MG PO SCH (06:32)
[2017-08-09] MEDS: PRENATAL VITAMINS W/ FOLIC ACID TABLET (FP) PO SCH (10:32)
--- NOTE | 2017-08-09 14:08 | PN ---
S Progress Note (SOAP) Subjective: Patient reports hard stools, and issues with hemorrhoids. Reports feels feverish because he roommate is getting over a cold. Objective: 08/09/17 14:05 Vital Signs Period Temp Pulse Resp BP Sys/Nguyen Pulse Ox Last 24 Hr 98.1 F 67 18-18 110/60 Laboratory Last Values WBC 6.4 K/mm3 (4.0-10.0) 07/18/17 05:45 RBC 5.28 M/mm3 (4.00-5.60) 07/18/17 05:45 Hgb 14.7 GM/dL (11.7-16.9) 07/18/17 05:45 Hct 44.8 % (35.4-49) 07/18/17 05:45 MCV 84.9 fl (80-96) 07/18/17 05:45 MCH 27.9 pg (25.7-33.7) 07/18/17 05:45 MCHC 32.9 g/dl (32.0-35.9) 07/18/17 05:45 RDW 14.3 % (11.9-15.9) 07/18/17 05:45 Plt Count 204 K/MM3 (134-434) 07/18/17 05:45 MPV 11.0 fl (7.5-11.1) 07/18/17 05:45 Sodium 139 mmol/L (136-145) 07/18/17 05:45 Potassium 4.0 mmol/L (3.5-5.1) 07/18/17 05:45 Chloride 104 mmol/L (98-107) 07/18/17 05:45 Carbon Dioxide 28 mmol/L (21-32) 07/18/17 05:45 Anion Gap 7 (8-16) L 07/18/17 05:45 BUN 11 mg/dL (7-18) 07/18/17 05:45 Creatinine 1.2 mg/dL (0.7-1.3) 07/18/17 05:45 Creat Clearance w eGFR > 60 (>60) 07/18/17 05:45 Random Glucose 79 mg/dL (74-106) 07/18/17 05:45 Calcium 8.7 mg/dL (8.5-10.1) 07/18/17 05:45 Total Bilirubin 1.0 mg/dL (0.2-1.0) 07/18/17 05:45 AST 21 U/L (15-37) 07/18/17 05:45 ALT 24 U/L (12-78) 07/18/17 05:45 Alkaline Phosphatase 136 U/L (45-117) H 07/18/17 05:45 Total Protein 7.8 g/dl (6.4-8.2) 07/18/17 05:45 Albumin 4.2 g/dl (3.4-5.0) 07/18/17 05:45 Urine Color Hiwot 07/17/17 22:10 Urine Appearance Slcloudy 07/17/17 22:10 Urine pH 5.0 (5.0-8.0) 07/17/17 22:10 Ur Specific [place] 1.026 (1.001-1.035) 07/17/17 22:10 Urine Protein 1+ (NEGATIVE) H 07/17/17 22:10 Urine Glucose (UA) Negative (NEGATIVE) 07/17/17 22:10 Urine Ketones Negative (NEGATIVE) 07/17/17 22:10 Urine Blood Negative (NEGATIVE) 07/17/17 22:10 Urine Nitrite Negative (NEGATIVE) 07/17/17 22:10 Urine Bilirubin Negative (NEGATIVE) 07/17/17 22:10 Urine Urobilinogen 4.0 e.u/dl mg/dL (0.2-1.0) 07/17/17 22:10 Ur Leukocyte Esterase Trace (NEGATIVE) 07/17/17 22:10 Urine WBC (Auto) 2 /hpf (3-5) 07/17/17 22:10 Urine RBC (Auto) 2 /hpf (0-3) 07/17/17 22:10 Ur Epithelial Cells Rare /HPF (FEW) 07/17/17 22:10 Hyaline Casts 12 /lpf 07/17/17 22:10 Urine Mucus Moderate 07/17/17 22:10 RPR Titer Nonreactive (NONREACTIVE) 07/18/17 05:45 HIV 1&2 Antibody Screen Negative 07/17/17 14:30 HIV P24 Antigen Negative 07/17/17 14:30 Patient AO x3 self directing in no apparent distress, resting comfortably on his bed Lungs are clear throughout , no adventitious breath sound or cough present Heart rate and rhythm within normal limits Abdomen soft , bowel sound present through out, non- tender non distended Assessment: 08/09/17 14:07 Hemorrhoids Plan: Increase fluids Anusol PRN Continue to monitor
[2017-08-09] MEDS: HYDROCORTISONE ACETATE 25 MG/SUPP.RECT RC SCH (21:12)
[2017-08-09] MEDS: THIAMINE HCL 100 MG TABLET (FP) PO SCH (21:13)
[2017-08-09] MEDS: BACLOFEN 10 MG TABLET (FP) PO SCH (21:13)
[2017-08-09] MEDS: DOCUSATE SODIUM 100 MG CAPSULE (FP) PO SCH (21:13)
[2017-08-10] MEDS ORDERED: METHADONE HCL 40 MG DISPERSABLE TABLET ONE (04:52)
[2017-08-10] MEDS ORDERED: METHADONE HCL 10 MG TABLET ONE (04:52)
[2017-08-10] MEDS: METHADONE 80 MG, METHADONE 20 MG PO SCH (06:11)
[2017-08-10] MEDS: PRENATAL VITAMINS W/ FOLIC ACID TABLET (FP) PO SCH (09:55)
[2017-08-10] MEDS: ACETAMINOPHEN 325 MG TABLET (FP) PO PRN (12:40)
[2017-08-10] MEDS: THIAMINE HCL 100 MG TABLET (FP) PO SCH (21:04)
[2017-08-10] MEDS: BACLOFEN 10 MG TABLET (FP) PO SCH (21:04)
[2017-08-10] MEDS: HYDROCORTISONE ACETATE 25 MG/SUPP.RECT RC SCH (21:04)
[2017-08-10] MEDS: DOCUSATE SODIUM 100 MG CAPSULE (FP) PO SCH (21:04)
[2017-08-11] MEDS ORDERED: METHADONE HCL 40 MG DISPERSABLE TABLET ONE (05:03)
[2017-08-11] MEDS ORDERED: METHADONE HCL 10 MG TABLET ONE (05:03)
[2017-08-11] MEDS: METHADONE 80 MG, METHADONE 20 MG PO SCH (06:38)
[2017-08-11] MEDS: PRENATAL VITAMINS W/ FOLIC ACID TABLET (FP) PO SCH (10:00)
[2017-08-11] MEDS: DOCUSATE SODIUM 100 MG CAPSULE (FP) PO SCH (21:33)
[2017-08-11] MEDS: HYDROCORTISONE ACETATE 25 MG/SUPP.RECT RC SCH (21:33)
[2017-08-11] MEDS: THIAMINE HCL 100 MG TABLET (FP) PO SCH (21:34)
[2017-08-11] MEDS: BACLOFEN 10 MG TABLET (FP) PO SCH (21:35)
[2017-08-12] MEDS ORDERED: METHADONE HCL 10 MG TABLET ONE (05:47)
[2017-08-12] MEDS ORDERED: METHADONE HCL 40 MG DISPERSABLE TABLET ONE (05:48)
[2017-08-12] MEDS: METHADONE 80 MG, METHADONE 20 MG PO SCH (06:32)
[2017-08-12] MEDS: PRENATAL VITAMINS W/ FOLIC ACID TABLET (FP) PO SCH (10:21)
[2017-08-12] MEDS: HYDROCORTISONE ACETATE 25 MG/SUPP.RECT RC SCH (21:06)
[2017-08-12] MEDS: THIAMINE HCL 100 MG TABLET (FP) PO SCH (21:07)
[2017-08-12] MEDS: BACLOFEN 10 MG TABLET (FP) PO SCH (21:07)
[2017-08-12] MEDS: DOCUSATE SODIUM 100 MG CAPSULE (FP) PO SCH (21:07)
[2017-08-13] MEDS ORDERED: METHADONE HCL 10 MG TABLET ONE (04:26)
[2017-08-13] MEDS ORDERED: METHADONE HCL 40 MG DISPERSABLE TABLET ONE (04:27)
[2017-08-13] MEDS: METHADONE 80 MG, METHADONE 20 MG PO SCH (06:19)
[2017-08-13] MEDS ORDERED: METHADONE 80 MG, METHADONE 20 MG PO SCH (06:59)
[2017-08-13] MEDS: PRENATAL VITAMINS W/ FOLIC ACID TABLET (FP) PO SCH (10:19)
[2017-08-13] MEDS: DOCUSATE SODIUM 100 MG CAPSULE (FP) PO SCH (21:09)
[2017-08-13] MEDS: HYDROCORTISONE ACETATE 25 MG/SUPP.RECT RC SCH (21:09)
[2017-08-13] MEDS: THIAMINE HCL 100 MG TABLET (FP) PO SCH (21:09)
[2017-08-13] MEDS: BACLOFEN 10 MG TABLET (FP) PO SCH (21:09)
[2017-08-14] MEDS ORDERED: METHADONE HCL 10 MG TABLET ONE (04:03)
[2017-08-14] MEDS ORDERED: METHADONE HCL 40 MG DISPERSABLE TABLET ONE (04:03)
[2017-08-14] MEDS: METHADONE 80 MG, METHADONE 20 MG PO SCH (06:20)
[2017-08-14] MEDS: PRENATAL VITAMINS W/ FOLIC ACID TABLET (FP) PO SCH (10:09)
[2017-08-14] MEDS: DOCUSATE SODIUM 100 MG CAPSULE (FP) PO SCH (21:06)
[2017-08-14] MEDS: BACLOFEN 10 MG TABLET (FP) PO SCH (21:06)
[2017-08-14] MEDS: HYDROCORTISONE ACETATE 25 MG/SUPP.RECT RC SCH (21:06)
[2017-08-14] MEDS: THIAMINE HCL 100 MG TABLET (FP) PO SCH (21:07)
[2017-08-15] MEDS ORDERED: METHADONE HCL 40 MG DISPERSABLE TABLET ONE (03:14)
[2017-08-15] MEDS ORDERED: METHADONE HCL 10 MG TABLET ONE (03:14)
[2017-08-15] MEDS: METHADONE 80 MG, METHADONE 20 MG PO SCH (06:24)
[2017-08-15] MEDS: PRENATAL VITAMINS W/ FOLIC ACID TABLET (FP) PO SCH (10:21)
[2017-08-15] MEDS: BACLOFEN 10 MG TABLET (FP) PO SCH (21:49)
[2017-08-15] MEDS: THIAMINE HCL 100 MG TABLET (FP) PO SCH (21:49)
[2017-08-15] MEDS: HYDROCORTISONE ACETATE 25 MG/SUPP.RECT RC SCH (21:49)
[2017-08-15] MEDS: DOCUSATE SODIUM 100 MG CAPSULE (FP) PO SCH (21:49)
[2017-08-16] MEDS ORDERED: METHADONE HCL 10 MG TABLET ONE (04:21)
[2017-08-16] MEDS ORDERED: METHADONE HCL 40 MG DISPERSABLE TABLET ONE (04:21)
[2017-08-16] MEDS: METHADONE 80 MG, METHADONE 20 MG PO SCH (06:20)
[2017-08-16] MEDS: PRENATAL VITAMINS W/ FOLIC ACID TABLET (FP) PO SCH (09:39)
[2017-08-16] MEDS: HYDROCORTISONE ACETATE 25 MG/SUPP.RECT RC SCH (22:02)
[2017-08-16] MEDS: THIAMINE HCL 100 MG TABLET (FP) PO SCH (22:03)
[2017-08-16] MEDS: BACLOFEN 10 MG TABLET (FP) PO SCH (22:03)
[2017-08-16] MEDS: DOCUSATE SODIUM 100 MG CAPSULE (FP) PO SCH (22:03)
[2017-08-17] MEDS ORDERED: METHADONE HCL 40 MG DISPERSABLE TABLET ONE (04:15)
[2017-08-17] MEDS ORDERED: METHADONE HCL 10 MG TABLET ONE (04:15)
[2017-08-17] MEDS: METHADONE 80 MG, METHADONE 20 MG PO SCH (06:38)
[2017-08-17] MEDS: PRENATAL VITAMINS W/ FOLIC ACID TABLET (FP) PO SCH (09:30)
[2017-08-17] MEDS: HYDROCORTISONE ACETATE 25 MG/SUPP.RECT RC SCH (21:05)
[2017-08-17] MEDS: DOCUSATE SODIUM 100 MG CAPSULE (FP) PO SCH (21:05)
[2017-08-17] MEDS: THIAMINE HCL 100 MG TABLET (FP) PO SCH (21:05)
[2017-08-17] MEDS: BACLOFEN 10 MG TABLET (FP) PO SCH (21:05)
[2017-08-18] MEDS ORDERED: METHADONE HCL 40 MG DISPERSABLE TABLET ONE (04:26)
[2017-08-18] MEDS ORDERED: METHADONE HCL 10 MG TABLET ONE (04:26)
[2017-08-18] MEDS: METHADONE 80 MG, METHADONE 20 MG PO SCH (06:27)
[2017-08-18] MEDS: PRENATAL VITAMINS W/ FOLIC ACID TABLET (FP) PO SCH (10:40)
[2017-08-18] MEDS: HYDROCORTISONE ACETATE 25 MG/SUPP.RECT RC SCH (21:11)
[2017-08-18] MEDS: DOCUSATE SODIUM 100 MG CAPSULE (FP) PO SCH (21:11)
[2017-08-18] MEDS: BACLOFEN 10 MG TABLET (FP) PO SCH (21:11)
[2017-08-18] MEDS: THIAMINE HCL 100 MG TABLET (FP) PO SCH (21:12)
[2017-08-19] MEDS ORDERED: METHADONE HCL 10 MG TABLET ONE (03:17)
[2017-08-19] MEDS ORDERED: METHADONE HCL 40 MG DISPERSABLE TABLET ONE (03:17)
[2017-08-19] MEDS: METHADONE 80 MG, METHADONE 20 MG PO SCH (06:01)
--- NOTE | 2017-08-19 06:28 | PN ---
Psychiatric Progress Note Vital Signs: Vital Signs Period Temp Pulse Resp BP Sys/Nguyen Pulse Ox Last 24 Hr 97.7 F 67 18-18 124/71 Date of Session: 08/19/17 Chief Complaint:: Discharge Note HPI: Patient addressing Opoid and Sedative Dependence comorbid with Nicotine Dependence ROS: LBP, COPD, DVT Current Medications: Active Medications Generic Name Dose Route Start Last Admin Trade Name Freq PRN Reason Stop Dose Admin Acetaminophen 650 mg 07/17/17 14:23 08/10/17 12:40 Tylenol - PO 650 mg Q4H PRN Administration FEVER Al Hydroxide/Mg Hydroxide 30 ml 07/17/17 14:23 Mylanta Oral Suspension - PO Q6H PRN DYSPEPSIA Albuterol Sulfate 2 puff 07/17/17 14:31 Ventolin Hfa Inhaler - IH Q4H PRN SHORTNESS OF BREATH Baclofen 10 mg 07/17/17 22:00 08/18/17 21:11 Lioresal - PO 10 mg HS ALYSSA Administration Docusate Sodium 300 mg 08/07/17 22:00 08/18/17 21:11 Colace - PO 300 mg HS ALYSSA Administration Eucalyptus/Menthol/Phenol/Sorbitol 1 each 07/17/17 14:23 Cepastat Lozenge - MM Q4H PRN SORE THROAT Guaifenesin 10 ml 07/17/17 14:23 Robitussin Dm - PO Q6H PRN COUGH Hydrocortisone Acetate 25 mg 08/09/17 22:00 08/18/17 21:11 Anusol Hc Suppository - RC 25 mg HS ALYSSA Administration Hydroxyzine Pamoate 50 mg 07/17/17 14:23 Vistaril - PO Q4H PRN AGITATION Ibuprofen 400 mg 07/17/17 14:23 07/18/17 12:49 Motrin - PO 400 mg Q6H PRN Administration PAIN LEVEL 4-6 Loperamide HCl 4 mg 07/17/17 14:23 Imodium - PO Q6H PRN DIARRHEA Magnesium Citrate 300 ml 07/17/17 14:23 Citroma - PO Q48H PRN CONSTIPATION Magnesium Hydroxide 30 ml 07/17/17 14:23 Milk Of Magnesia - PO DAILY PRN CONSTIPATION Methadone HCl 80 mg/ Methadone 100 mg 08/14/17 06:00 08/19/17 06:01 HCl 20 mg PO 08/21/17 05:59 100 mg DAILY@0600 ALYSSA Administration Multivit/Folic Acid/Iron 1 tab 07/18/17 10:00 08/18/17 10:40 Vitamins (Sjr) - PO Not Given DAILY ALYSSA Pseudoephedrine/Triprolidine 1 combo 07/17/17 14:23 08/10/17 12:40 Actifed - PO 1 combo TID PRN Administration NASAL CONGESTION Thiamine HCl 100 mg 07/17/17 22:00 08/18/17 21:12 Vitamin B1 - PO 100 mg HS ALYSSA Administration Current Side Effect: No Lab tests ordered: Yes Lab tests reviewed: Yes Provider note:: Patient has completed this program today. He has met his treatment goals and will continue to address his issues in outpatient treatment at [facility]. He is stable for discharge today Total face to face time:: 35 Mental Status Exam - Mental Status Exam Alert and Oriented to: Time, Place, Person Cognitive Function: Fair Patient Appearance: Well Groomed Mood: Hopeful, Euthymic Affect: Appropriate Patient Behavior: Cooperative Speech Pattern: Clear Voice Loudness: Normal Thought Process: Intact, Goal Oriented Thought Disorder: Not Present Hallucinations: Denies Suicidal Ideation: Denies Homicidal Ideation: Denies Insight/Judgement: Fair Sleep: Fair Appetite: Good Muscle strength/Tone: Normal Gait/Station: Normal Psychiatric Treatment Plan - Problem List (1) Opioid dependence Current Visit: Yes (2) Sedative dependence Current Visit: Yes (3) Nicotine dependence Current Visit: Yes Qualifiers: Nicotine product type: cigarettes (4) S/P laparoscopic cholecystectomy Current Visit: Yes Initial treatment plan: Patient is discharged today and referred to [facility] for outpatient treatment
[2017-08-19 06:45] VITALS: BP 121/76; PULSE 72; TEMP 97.8
[2017-08-19] MEDS: PRENATAL VITAMINS W/ FOLIC ACID TABLET (FP) PO SCH (09:44)
== END 2017-08-19 10:55 | disposition home or self-care (01) | DRG 895 ==
LOC: YASAS 11:15 → Y6N 14:40 → Y3W 07-22 12:43 → UNDODISIN 08-19 10:55
PROVIDERS: ADMIT Psychiatry & Neurology Psychiatry; ATTEND Psychiatry & Neurology Psychiatry
PROC: HZ2ZZZZ Detoxification Services for Substance Abuse Treatment (ICD-10-PCS; principal; 2017-07-17)
PROC: HZ42ZZZ Group Counseling for Substance Abuse Treatment, Cognitive-Behavioral (ICD-10-PCS; 2017-07-22)
DX: F11.20 Opioid dependence, uncomplicated (principal); F13.230 Sedative, hypnotic or anxiolytic dependence with withdrawal, uncomplicated; F17.210 Nicotine dependence, cigarettes, uncomplicated; F32.9 Major depressive disorder, single episode, unspecified; F19.24 Other psychoactive substance dependence with psychoactive substance-induced mood disorder; M54.5 Low back pain; M51.27 Other intervertebral disc displacement, lumbosacral region; Z86.718 Personal history of other venous thrombosis and embolism; Z90.49 Acquired absence of other specified parts of digestive tract; Z59.0 Homelessness
CPT/HCPCS: 36415; 80053; 81003; 81015; 85027; 86593; 87389; J0475